=== PATIENT | male | born 1940 | race Caucasian/White ===

== ENCOUNTER → 2017-01-04 | Outpatient (CLI) | payer MEDICARE, BC ==
[~2017-01-04] MED LIST: ALLO300T PO; AMLO10TA2 PO; APIX5TAB PO; ATOR10TA PO; LISI-170 PO; LISI40TA PO; METO25TA91 PO; METO5VIA IVPush
== END | disposition home or self-care (01) ==
LOC: CFH 13:57
PROVIDERS: ATTEND Internal Medicine Cardiovascular Disease
DX: I50.9 Heart failure, unspecified (principal); I48.0 Paroxysmal atrial fibrillation
CPT/HCPCS: 71020

== ENCOUNTER 2019-09-20 10:03 | Outpatient (CLI) | payer MEDICARE, BC ==
[~2019-09-20 10:03] MED LIST changes: +AMIO200T42 PO; -AMLO10TA2 PO; +AMLO10TA8 PO; +ATOR10TA9 PO; +FINA5TAB4 PO; +FURO20TA3 PO; +LISI5TAB7 PO; +METH10TA6 PO; +SPIR25TA PO
[2019-09-20] MEDS ORDERED: LEVO50TA5 PO (10:38)
[2019-09-20] MEDS ORDERED: ATOR10TA9 PO (10:38)
[2019-09-20] MEDS ORDERED: SACU1TAB PO (10:38)
[2019-09-20] MEDS ORDERED: FURO20TA3 PO (10:38)
[2019-09-20] MEDS ORDERED: SPIR25TA5 PO (10:38)
[2019-09-20] MEDS ORDERED: FINA5TAB4 PO (10:38)
[2019-09-20] MEDS ORDERED: APIX5TAB PO (10:38)
[2019-09-20] MEDS ORDERED: AMIO100T4 PO (10:38)
[2019-09-20] MEDS ORDERED: METO25TA91 PO (10:38)
== END 2019-09-20 23:59 | disposition home or self-care (01) ==
LOC: STAR 10:03
PROVIDERS: ATTEND Internal Medicine Cardiovascular Disease
DX: Z01.818 Encounter for other preprocedural examination (principal); I42.9 Cardiomyopathy, unspecified; I48.91 Unspecified atrial fibrillation; R53.83 Other fatigue
CPT/HCPCS: 36415; 71046; 80053; 84436; 84443; 84481; 85025; 93005

== ENCOUNTER 2019-09-22 10:29 | Observation (INO) | payer MEDICARE, BC ==
[2019-09-20 10:40] VITALS: BP 130/68
[2019-09-20 11:11] LABS: BASOPHILS # (AUTO) 0.04 x10^3/uL (0-0.1); BASOPHILS % (AUTO) 0 % (0-1); EOSINOPHILS # (AUTO) 0.09 x10^3/uL (0-0.4); EOSINOPHILS % (AUTO) 1 % (1-7); LYMPHOCYTES # (AUTO) 0.88 x10^3/uL (1-3.4); LYMPHOCYTES % (AUTO) 10 % (22-44); MD NO; MEAN CORPUSCULAR HEMOGLOBIN 34.3 pg (27.5-34.5); MEAN CORPUSCULAR HGB CONC 32.9 g/dL (33.2-36.2); MEAN CORPUSCULAR VOLUME 104.2 fL (81-97); MEAN PLATELET VOLUME 7.9 fL (7.4-10.4); MONOCYTES # (AUTO) 0.45 x10^3/uL (0.2-0.8); MONOCYTES % (AUTO) 5 % (2-9); NEUTROPHILS # (AUTO) 7.83 x10^3/uL (1.8-6.8); NEUTROPHILS % (AUTO) 84 % (42-75); PLATELET COUNT 236 x10^3/uL (130-400); RED BLOOD COUNT 4.09 x10^6/uL (4.38-5.82); RED CELL DISTRIBUTION WIDTH 15.4 % (9.4-14.8)
[2019-09-20 11:22] LABS: ALBUMIN 3.8 g/dL (3.4-5.0); ANION GAP 5 mmol/L (5-15); CHLORIDE 111 mmol/L (98-107)
[2019-09-20 11:34] LABS: ALANINE AMINOTRANSFERASE 28 U/L (12-78); ALKALINE PHOSPHATASE 60 U/L (45-117); CREATININE 1.32 mg/dL (0.7-1.3); TOTAL PROTEIN 7.8 g/dL (6.4-8.2)
[~2019-09-22] VITALS: Ht 177.8 cm; Wt 75.9 kg
[~2019-09-22 10:29] MED LIST changes: +AMIO100T4 PO; +LEVO50TA5 PO; +SACU1TAB PO; +SPIR25TA5 PO
[2019-09-22] MEDS ORDERED: SODIUM CHLORIDE 0.9% 1,000 ML IV SCH (10:39)
[2019-09-22] MEDS ORDERED: PROPOFOL 50 ML ONE ×2 (11:31→12:58)
[2019-09-22] MEDS ORDERED: FENTANYL PF 250 MCG/5ML ONE (11:32)
[2019-09-22] MEDS ORDERED: LIDOCAINE 1%, 20ML ONE (11:34)
[2019-09-22] MEDS ORDERED: CEFAZOLIN 1,000 MG ONE ×2 (11:35→11:40)
[2019-09-22] MEDS ORDERED: FENTANYL PF 100 MCG/2ML ONE (11:40)
[2019-09-22] MEDS ORDERED: MIDAZOLAM 1 MG/ML, 5ML ONE (11:40)
[2019-09-22] MEDS ORDERED: CEFAZOLIN PMX 1GM/50ML 50 ML ONE (11:40)
[2019-09-22] MEDS ORDERED: LIDOCAINE 2%, 20ML ONE (11:40)
[2019-09-22] MEDS ORDERED: HYDROmorphone 2 MG/ML, 1ML IVPush PRN (13:00)
[2019-09-22] MEDS ORDERED: ONDANSETRON ODT 8 MG PO PRN (13:00)
[2019-09-22] MEDS ORDERED: FENTANYL PF 100 MCG/2ML IV PRN (13:00)
[2019-09-22] MEDS ORDERED: OXYcodone 5 MG/5 ML ORAL.SOL UDC PO PRN (13:00)
[2019-09-22] MEDS ORDERED: PROMETHAZINE 25 MG/ML, 1ML IV PRN (13:00)
[2019-09-22] MEDS ORDERED: ONDANSETRON 2MG/ML, 2ML IV PRN (13:00)
[2019-09-22] MEDS ORDERED: EPHEDRINE 50 MG/ML, 1ML IM PRN (13:00)
[2019-09-22] MEDS ORDERED: DIPHENHYDRAMINE 50 MG/ML, 1ML IM PRN (13:00)
[2019-09-22] MEDS ORDERED: ACETAMINOPHEN 325 MG TABLET PO PRN ×2 (13:00→14:00)
[2019-09-22] MEDS ORDERED: EPHEDRINE 50 MG/ML, 1ML IVPush PRN (13:00)
[2019-09-22] MEDS ORDERED: ONDANSETRON 2MG/ML, 2ML ONE (13:54)
[2019-09-22] MEDS ORDERED: HOLD MEDICATION MC PRN (14:00)
[2019-09-22] MEDS ORDERED: CEFAZOLIN PMX 1GM/50ML 50 ML IVPB SCH ×2 (14:00→20:00)
[2019-09-22 16:05] VITALS: BP 108/63
[2019-09-22] MEDS: LEVOTHYROXINE 50 MCG TABLET PO SCH (16:36)
[2019-09-22 20:22] VITALS: BP 97/61
[2019-09-22] MEDS: CEFAZOLIN PMX 1GM/50ML 50 ML IVPB SCH (20:25)
[2019-09-22] MEDS ORDERED: SACUBITRIL/VALSARTAN 24MG-26MG TAB PO SCH (21:00)
[2019-09-22] MEDS ORDERED: SODIUM CHLORIDE FLUSH 10ML SYR IVF SCH (21:00)
[2019-09-22] MEDS ORDERED: ATORVASTATIN 10 MG TABLET PO SCH (21:00)
[2019-09-23 00:53] VITALS: BP 116/73
[2019-09-23] MEDS: CEFAZOLIN PMX 1GM/50ML 50 ML IVPB SCH (04:04)
[2019-09-23] MEDS: LEVOTHYROXINE 50 MCG TABLET PO SCH (06:02)
[2019-09-23] MEDS ORDERED: SPIRONOLACTONE 25 MG TABLET PO SCH (09:00)
[2019-09-23] MEDS ORDERED: FUROSEMIDE 20 MG TABLET PO SCH (09:00)
[2019-09-23] MEDS ORDERED: AMIODARONE 200 MG TABLET PO SCH (09:00)
[2019-09-23] MEDS ORDERED: ALLOPURINOL 300 MG TABLET PO SCH (09:00)
[2019-09-23] MEDS ORDERED: METOPROLOL SUCCINATE 25 MG TAB.ER.24H PO SCH (09:00)
[2019-09-23] MEDS ORDERED: FINASTERIDE 5 MG TABLET PO SCH (09:00)
== END 2019-09-23 10:20 | disposition home or self-care (01) ==
LOC: CACL 10:29 → ORIP 13:56 → 5SO 16:00 → DCLOUNGE 09-23 10:05
PROVIDERS: ADMIT Internal Medicine Cardiovascular Disease; ATTEND Internal Medicine Cardiovascular Disease
DX: I42.8 Other cardiomyopathies (principal); I50.9 Heart failure, unspecified; I45.9 Conduction disorder, unspecified; I49.01 Ventricular fibrillation
CPT/HCPCS: 33225; 33249; 71045; 93641; 96365; 96366; C1769; C1779; C1882; C1887; C1892; C1895; C1900; G0378; J0690; J2405; J2704; J3010; J3490; Q9967; 36415; 71046; 80053; 84436; 84443; 84481; 85025; 93005; J2250

== ENCOUNTER 2020-10-25 08:50 | Outpatient (CLI) | payer MEDICARE ==
[~2020-10-25 08:50] MED LIST changes: +AMLO-211 PO; -AMLO10TA8 PO
== END 2020-10-25 23:59 | disposition home or self-care (01) ==
LOC: RAD 08:50
PROVIDERS: ATTEND Nurse Practitioner Family
DX: I42.9 Cardiomyopathy, unspecified (principal); I48.0 Paroxysmal atrial fibrillation
CPT/HCPCS: 71046